=== PATIENT | female | born 1990 | race Two or more races ===

== ENCOUNTER 2018-04-06 23:08 | Emergency (ER) | payer OTHER ==
[~2018-04-06] VITALS: Ht 162.6 cm; Wt 68.0 kg
[2018-04-07] MEDS ORDERED: LEVSIN/SL0.125 MG PO (06:38)
[2018-04-07] MEDS ORDERED: INTESTINEX680 M1 PO (06:38)
[2018-04-07] MEDS ORDERED: ZANTAC300 MG PO (06:38)
[2018-04-07] MEDS ORDERED: ZOFRAN4 MG PO (06:38)
== END 2018-04-07 06:40 | disposition home or self-care (01) ==
LOC: ER 23:08
DX: K52.9 Noninfective gastroenteritis and colitis, unspecified (principal); E86.0 Dehydration

== ENCOUNTER 2020-11-04 11:30 | Outpatient (CLI) | payer OTHER ==
[~2020-11-04 11:30] MED LIST: INTESTINEX680 M1 PO; LEVSIN/SL0.125 MG PO; ZANTAC300 MG PO; ZOFRAN4 MG PO
== END 2020-11-04 11:39 | disposition home or self-care (01) ==
LOC: RAD 11:30
PROVIDERS: ATTEND Orthopaedic Surgery
DX: S93.492A Sprain of other ligament of left ankle, initial encounter (principal); M25.572 Pain in left ankle and joints of left foot

== ENCOUNTER 2020-11-18 09:11 | Outpatient (CLI) | payer OTHER | END 2020-11-18 09:20 | disposition home or self-care (01) | LOC: RAD 09:11 | PROVIDERS: ATTEND Orthopaedic Surgery | DX: M25.572 Pain in left ankle and joints of left foot (principal) ==

== ENCOUNTER 2022-01-02 14:32 | Emergency (ER) | payer OTHER ==
[~2022-01-02] VITALS: Ht 160 cm; Wt 65.8 kg
[2022-01-02] MEDS ORDERED: PROZAC20 MG PO (14:43)
[2022-01-02] MEDS ORDERED: KETO10TA2 PO (17:36)
[2022-01-02] MEDS ORDERED: NORFLEX100MG PO (17:36)
== END 2022-01-02 17:40 | disposition home or self-care (01) ==
LOC: ER 14:32
DX: M54.50 Low back pain, unspecified (principal)

== ENCOUNTER → 2022-12-23 | Emergency (ER) | payer OTHER ==
[~2022-12-23] VITALS: Ht 160 cm; Wt 63.5 kg
[~2022-12-23] MED LIST changes: +KETO10TA2 PO; +NORFLEX100MG PO; +PROZAC20 MG PO
== END | disposition home or self-care (01) ==
LOC: ER 16:37
DX: M25.562 Pain in left knee (principal)